=== PATIENT | female | born 1995 | race Caucasian/White ===

== ENCOUNTER 2024-08-12 16:30 | Inpatient (IN) | payer OTHER ==
[2024-08-12 18:31] VITALS: BMI 26.6
[2024-08-12] MEDS ORDERED: NICOTINE POLACRILEX 2 MG LOZENGE BC PRN (18:46)
[2024-08-12] MEDS ORDERED: POLYETHYLENE GLYCOL (HEALTHYLAX) 3350 17 GM PACKET PO PRN (18:46)
[2024-08-12] MEDS ORDERED: NALOXONE (NARCAN) HCL 4 MG/0.1 ML SPRAY NS PRN (18:46)
[2024-08-12] MEDS ORDERED: ACETAMINOPHEN 325 MG TABLET (FP) PO PRN (18:46)
[2024-08-12] MEDS ORDERED: IBUPROFEN 400 MG TABLET (FP) PO PRN (18:46)
[2024-08-12] MEDS ORDERED: LOPERAMIDE HCL 2 MG CAPSULE PO PRN (18:46)
[2024-08-12] MEDS ORDERED: BENZOCAINE/MENTHOL (CHLORASEPTIC ) LOZENGE MM PRN (18:46)
[2024-08-12] MEDS ORDERED: MAGNESIUM HYDROX 2400MG/30ML ORAL SUSPENSION 30 ML CUP PO PRN (18:46)
[2024-08-12] MEDS ORDERED: guaiFENesin 600 MG TABLET.ER (FP) PO PRN (18:46)
[2024-08-12] MEDS ORDERED: MAG HYDROX/AL HYDROX/SIMETH 30 ML UNIT-DOSE CUP PO PRN (18:46)
[2024-08-12] MEDS ORDERED: BENZONATATE 200 MG CAPSULE PO PRN (18:46)
[2024-08-12] MEDS ORDERED: IBUPROFEN 600 MG TABLET (FP) PO PRN (18:46)
[2024-08-12] MEDS ORDERED: ONDANSETRON *ODT* 4 MG TABLET ONE (20:49)
[2024-08-12] MEDS: ONDANSETRON *ODT* 4 MG TABLET SL PRN (20:51)
[2024-08-12] MEDS: MELATONIN 5 MG TABLETS PO SCH (22:34)
[2024-08-12] MEDS: hydrOXYzine PAMOATE 25 MG CAPSULE (FP) PO PRN (22:34)
[2024-08-12] MEDS: THIAMINE 100 MG TABLET PO SCH (22:34)
[2024-08-12] MEDS: TUBERCULIN PPD 5 TU/0.1ML SYRINGE (IN PATIENT USE ONLY) ID ONE (22:37)
[2024-08-13 04:13] LABS: EPI CELLS 32 /uL (0-25.1); HYALINE CASTS 41 /uL (0-3.1); URINE APPEARANCE CLEAR; URINE BACTERIA >9,000 /uL (0-1359); URINE BILIRUBIN NEGATIVE (NEGATIVE); URINE COLOR YELLOW; URINE GLUCOSE (UA) NEGATIVE (NEGATIVE); URINE KETONE TRACE (NEGATIVE); URINE LEUK ESTERASE 3+ (NEGATIVE); URINE NITRITE POSITIVE (NEGATIVE); URINE PROTEIN TRACE (NEGATIVE); URINE RBC 10 /uL (0-23.9); URINE WBC 838 /uL (0-25.8)
[2024-08-13] MEDS: PRENATAL VITAMINS W/ FOLIC ACID TABLET (FP) PO SCH (09:37)
[2024-08-13 12:48] LABS: HEMOGLOBIN 12.2 GM/dL (10.7-15.3); MCH 29.5 pg (25.7-33.7); MCHC 32.9 g/dl (32.0-36.0); MEAN CELL VOLUME 89.8 fl (80-96); MEAN PLT VOLUME 9.3 fl (7.5-11.1); PLATELET COUNT 263 10^3/uL (134-434); RBC 4.12 M/mm3 (3.60-5.2); RDW 14.8 % (11.6-15.6)
[2024-08-13 12:56] LABS: CHLORIDE 105 mmol/L (98-107); POTASSIUM 4.4 mmol/L (3.5-5.1); SODIUM 137 mmol/L (136-145)
[2024-08-13 13:08] LABS: ALBUMIN 3.2 g/dl (3.4-5.0)
[2024-08-13 13:09] LABS: BLOOD UREA NITROGEN 14.1 mg/dL (7-18); CALCIUM 8.6 mg/dL (8.5-10.1)
[2024-08-13 13:10] LABS: ANION GAP 4 mmol/L (4-13); CO2 28 mmol/L (21-32); GLUCOSE,RANDOM 94 mg/dL (74-106)
[2024-08-13 13:13] LABS: CREATININE 0.7 mg/dL (0.55-1.3); SGOT/AST 16 U/L (15-37); SGPT/ALT 19 U/L (13-61)
[2024-08-13 13:14] LABS: BILIRUBIN,TOTAL 0.3 mg/dL (0.2-1); TOT PROT 6.6 g/dl (6.4-8.2)
[2024-08-13 13:15] LABS: ALK PHOS 84 U/L (45-117)
[2024-08-13] MEDS: FLU VACCINE (FLULAVAL) PF 45 MCG/0.5 ML SYRINGE 2024-2025 IM ONE (13:38)
[2024-08-13 15:52] LABS: SYPHILIS W/ RPR CONF REACTIVE (NONREACTIVE)
[2024-08-16] MEDS: NICOTINE POLACRILEX 2 MG GUM BUC PRN (13:13)
[2024-08-22 07:18] VITALS: RESP 16
[2024-08-26 06:46] VITALS: BP 135/85; PULSE 75; TEMP 97.5
[2024-08-26] MEDS: NALOXONE (NYS OPIOID OVERDOSE PROGRAM) 4 MG/0.1 ML SPRAY NS SCH (09:26)
== END 2024-08-26 10:00 | disposition home or self-care (01) | DRG 772 ==
LOC: YASAS 16:30 → Y3NR 20:30 → Y5N 08-14 14:42
PROVIDERS: ADMIT Allergy & Immunology; ATTEND Psychiatry & Neurology Pain Medicine
PROC: HZ42ZZZ Group Counseling for Substance Abuse Treatment, Cognitive-Behavioral (ICD-10-PCS; principal; 2024-08-12)
DX: F15.20 Other stimulant dependence, uncomplicated (principal); F10.10 Alcohol abuse, uncomplicated; F17.210 Nicotine dependence, cigarettes, uncomplicated; F64.0 Transsexualism; Z21 Asymptomatic human immunodeficiency virus [HIV] infection status; Z86.19 Personal history of other infectious and parasitic diseases
CPT/HCPCS: 36415; 80053; 80305; 80307; 81003; 85027; 86593; 86780; 86803; 90656; 93005; 93010; G0008; Q0162